=== PATIENT | female | born 1995 | race Caucasian/White ===

== ENCOUNTER 2021-05-17 19:36 | Emergency (ER) | payer MEDICAID ==
[2021-05-17] MEDS ORDERED: Sodium Chloride 0.9% 10 ML Syringe FLUSH PRN (20:08)
== END 2021-05-17 22:37 | disposition home or self-care (01) ==
LOC: JP.ED 19:36
DX: R55 Syncope and collapse (principal); J01.40 Acute pansinusitis, unspecified; N17.9 Acute kidney failure, unspecified; F41.9 Anxiety disorder, unspecified; F43.9 Reaction to severe stress, unspecified
CPT/HCPCS: 36415; 70450; 70486; 71250; 74176; 80053; 81001; 81025; 84439; 84443; 85025; 85379; 86140; 99283; 99284-25

== ENCOUNTER 2024-11-30 09:19 | Day surgery (SDC) | payer BC ==
[~2024-11-30 09:19] MED LIST: Midazolam 1 MG/ML 2 ML SDV ONE; Propofol 200 MG/20 ML SDV ONE; fentaNYL 100 MCG/2 ML SDV ONE
[2024-11-30] MEDS: Lactated Ringers 1,000 ML IV SCH (11:30)
== END 2024-11-30 11:52 | disposition home or self-care (01) ==
LOC: JP.SDS 09:19
PROVIDERS: ATTEND Surgery
DX: K22.89 Other specified disease of esophagus (principal); K20.90 Esophagitis, unspecified without bleeding; Z79.899 Other long term (current) drug therapy
CPT/HCPCS: 43239; 81025; J2250; J2704; J3010; J7120; 00731-QZ